=== PATIENT | female | born 1955 | race Caucasian/White ===

== ENCOUNTER 2025-06-14 06:05 | Inpatient (IN) | payer MEDICARE, SELFPAY ==
[2025-06-14] VITALS (58 sets, daily range): BP systolic 103–165; BP diastolic 55–91; PULSE 58–94; RESP 12–26; TEMP 36.5–36.9; O2SAT 92–100; BMI 35.1
--- NOTE | 2025-06-14 | ECHO_ITS ---
Patient Info Name: Sharmila Rubalcava Age: 69 years : 1955 Gender: Female Ht: 64 in Wt: 204 lbs BSA: 2.08 m2 HR: 65 bpm BP: 109 / 61 mmHg Heart Rhythm: Sinus Rhythm Technical Quality: Good Exam Date: 06/14/2025 3:33 PM Patient Status: I Admit Date: 06/14/2025 Exam Type: CA echo doppler color flow Complete two-dimensional, color flow and Doppler transthoracic echocardiogram is performed. Staff Referring Physician: Khloe Cheatham Hepatology Physician: Willie Pisano III Attending Provider: Carol Duffy MD Summary 1. Complete two-dimensional, color flow and Doppler transthoracic echocardiogram is performed. 2. Concentric left ventricular hypertrophy with vigorous systolic function visually estimated ejection fraction 75%. 3. Is 1 diastolic noncompliance. 4. Aortic valve sclerosis with good leaflet separation valve was not stenotic. 5. Mild mitral regurgitation. Left Ventricle Left ventricular chamber dimension is normal. Left ventricular systolic function is hyperdynamic, estimated at >70. There is moderate concentric increased left ventricular wall thickness. The left ventricular diastolic function is grade I diastolic dysfunction. Right Ventricle Right ventricular chamber dimension is normal. Left Atria Left atrial chamber dimension is normal. Right Atria Right atrial chamber dimension is normal. Aortic Valve The aortic valve is trileaflet. There is mild aortic valve sclerosis. Pulmonic Valve The pulmonic valve is normal. Mitral Valve The mitral valve has normal leaflets. There is mild mitral valve regurgitation. Tricuspid Valve The tricuspid valve leaflets are normal. Pericardium/Pleural The pericardium appears normal. Aorta The aortic root size at the sinus of Valsalva is normal. Left Ventricular Outflow Tract Name Value Normal LVOT 2D LVOT Diameter 2.2 cm LVOT Doppler LVOT Peak Velocity 153 cm/s LVOT Peak Gradient 9 mmHg LVOT Mean Gradient 6 mmHg LVOT VTI 39 cm LVOT VTI/AV VTI Ratio 0.9 LVOT Stroke Volume 143 ml LVOT CO 8.7 l/min LVOT CI 4.2 l/min/m2 Pulmonic Valve Name Value Normal PV Doppler PV Peak Velocity 78 cm/s PV Peak Gradient 2 mmHg PV Mean Gradient 1 mmHg Mitral Valve Name Value Normal MV Doppler MV Peak Gradient 3 mmHg MV Mean Gradient 2 mmHg MV Area (Cont Eq VTI) 4.6 cm2 MV Regurgitation Doppler MR Peak Gradient 128 mmHg MV Diastolic Function MV E Peak Velocity 82 cm/s MV A Peak Velocity 99 cm/s MV E/A 0.8 MV Decel Time (PW) 286 ms MV Annular TDI MV E/e' (Septal) 20.3 MV E/e' (Lateral) 16.7 MV E/e' (Average) 18.5 Tricuspid Valve Name Value Normal TV Regurgitation Doppler TR Peak Velocity 244 cm/s TR Peak Gradient 24 mmHg Estimated PAP/RSVP RA Pressure 10 mmHg <=5 PA Systolic Pressure 34 mmHg <36 RV Systolic Pressure 34 mmHg <36 TV Annular TDI TV Lateral Patricia s' Velocity 9.9 cm/s >=9.5 Aortic Valve Name Value Normal AV Doppler AV Peak Velocity 216 cm/s AV Peak Gradient 19 mmHg AV Mean Gradient 8 mmHg AV VTI 41 cm AV Area (Cont Eq VTI) 3.5 cm2 >=3.0 AV Area (Cont Eq Akin) 2.6 cm2 AV DI (Akin) 0.71 AV Regurgitation 2D LVOT Area 3.7 cm2 Ventricles Name Value Normal LV Dimensions 2D/MM IVS Diastolic Thickness (2D) 1.5 cm 0.6-1.0 LVID Diastole (2D) 3.2 cm 3.8-5.2 LVIW Diastolic Thickness (2D) 1.5 cm 0.6-0.9 LVID Systole (2D) 2.3 cm 2.2-3.5 LVOT Diameter 2.2 cm LV Mass (2D Cubed) 169.64 g 67.00-162.00 LV Mass Index (2D Cubed) 81 g/m2 43-95 Relative Wall Thickness (2D) 0.93 <=0.42 LV Fractional Shortening/Ejection Fraction 2D/MM LV Fractional Shortening (2D) 27 % 27-45 LV EF (2D Teichholz) 55 % LV Diastolic Volume (4C MOD) 66 ml LV EF (4C MOD) 73 % LV Diastolic Volume (2C MOD) 51 ml LV EF (2C MOD) 58 % LV Diastolic Volume (BP MOD) 60 ml 46-106 LV Diastolic Volume Index (BP MOD) 29 ml/m2 29-61 LV Systolic Volume (BP MOD) 20 ml 14-42 LV Systolic Volume Index (BP MOD) 9 ml/m2 8-24 LV EF (BP MOD) 67 % 54-74 LV Diastolic Length (4C) 7.8 cm LV Systolic Length (4C) 6.3 cm LV Stroke Volume (4C MOD) 48 ml Atria Name Value Normal LA Dimensions LA Volume (4C A-L) 43 ml LA Volume (BP A-L) 50 ml RA Dimensions RA Systolic Major [place] Length (4C) 4.9 cm 2.2-2.8 RA Area (4C) 15.1 cm2 <=18.0 Report Signatures
--- NOTE | ~2025-06-14 | XR_ITS ---
Examination: XR chest 2V Clinical History: dyspnea Comparison: None Technique: PA and Lateral Findings: Cardiomediastinal silhouette normal size and configuration. Scattered interstitial markings. No acute bony abnormality. IMPRESSION: 1. Interstitial pulmonary edema and/or pneumonitis. Reviewed, dictated and finalized at location R.
--- NOTE | ~2025-06-14 | US_ITS ---
US renal BI CLINICAL INDICATION:renal insufficiency . COMPARISON: None. FINDINGS: The right kidney measures 9.7 x 4.3 x 4.8 cm. The left kidney measures 11 x 5.6 x 4.7 cm. Renal contour and echotexture are unremarkable. No cystic or solid mass is evident .There is no hydronephrosis. The bladder is unremarkable. IMPRESSION: No hydronephrosis is evident. Normal appearing bladder. Reviewed, dictated and finalized at location S.
--- NOTE | 2025-06-14 06:20 | ECG_ITS ---
Test Date: 2025-06-14 06:38:04 Measurements Intervals Centre Rate: 87 P: 36 VT: 195 QRS: 2 QRSD: 93 T: 97 QT: 365 QTc: 440 Interpretive Statements SINUS RHYTHM POSSIBLE LEFT ATRIAL ENLARGEMENT LEFT VENTRICULAR HYPERTROPHY AND ST-T CHANGE BASELINE ARTIFACT- V2 BORDERLINE ECG No previous ECG available for comparison Electronically Signed On 06-14-2025 07:00:04 CDT by Terry Cr D.O.
[2025-06-14 06:39] LABS: Hematocrit 39.6 % (37.0-47.0); Hemoglobin 13.1 g/dL (12.0-15.0); Immature Granulocyte Percent A 0.3 % (0-0.5); Lymphocytes Absolute Auto 1.63 K/mm3 (0.9-3.2); Mean Corpuscular HGB Conc 33.1 g/dl (32-36); Mean Corpuscular Hemoglobin 27.2 pg (26-34); Mean Corpuscular Volume 82.2 fl (80-100); Nucleated Red Blood Cells Absolute Auto 0.000 K/mm3 (0.0-0.012); Nucleated Red Blood Cells Perc 0.0 % (0.0-0.2); Platelet Count Result 210 k/mm3 (150-375); Red Blood Count 4.82 M/mm3 (4.2-5.4); White Blood Count 9.0 K/mm3 (4.5-10.0)
[2025-06-14 06:48] LABS: Alanine Aminotransferase 22 U/L (6-35); Albumin Level 4.1 g/dL (3.5-5.1); Alkaline Phosphatase 94 U/L (38-126); Anion Gap 7 mmol/L (4-12); Aspartate Amino Transferase 36 U/L (14-36); Bilirubin,Total 0.6 mg/dL (0.2-1.3); Blood Urea Nitrogen 18 mg/dL (7-17); Calcium 9.8 mg/dL (8.4-10.2); Carbon Dioxide 25 mmol/L (22-30); Chloride 103 mmol/L (98-107); Estimated CRCL calculation 36 ml/min; Estimated Glomerular Filt Rate 36; Glucose 137 mg/dL (65-110); Lipase 99 U/L (23-300); Potassium 4.4 mmol/L (3.4-5.0); Sodium 135 mmol/L (137-145); Total Protein 6.7 g/dL (6.3-8.2)
[2025-06-14 06:53] LABS: INR 1.0; Prothrombin Time 12.8 Seconds (11.1-14.7)
[2025-06-14 06:54] LABS: Partial Thromboplastin Time 31.5 Seconds (22.3-36.8)
[2025-06-14 06:55] LABS: Strep Group A RT-PCR NOT DETECTED (Negative)
[2025-06-14 07:01] LABS: Troponin I 1.150 ng/mL (0.000-0.034)
[2025-06-14 07:06] LABS: Influenza A QL RT-PCR Negative (Negative); Influenza B QL RT-PCR Negative (Negative); RSV RNA, RT-PCR Negative (Negative); SARS-CoV-2 RNA PCR Negative (Negative)
--- OUTSIDE RECORDS SUMMARY | 2025-06-14 07:30 | XMS_ITS | Clinical Summary ---
Author Organization [facility] Address [address] [place] [address] Care Team Providers Care Chief Ophthalmic Technician Name Role Phone Walter Joe MD Primary Care Provider [phone] Flavia Alonso RN Unavailable [phone] Allergies Active Allergy Reactions Criticality Noted Date Comments Ciprofloxacin Unknown,Rash Medium 10/11/2017 Metronidazole Unknown,Rash Medium 10/11/2017 Nitrofurantoin Itching High 10/11/2017 Pneumococcal 23-Hailee Ps Vaccine Rash Medium 09/05 Medications ramipriL (ALTACE) 5 mg capsule Take 1 capsule (5 mg total) by mouth daily 90 capsule 3 02/14/20 25 026 Active rosuvastatin (CRESTOR) 5 mg tablet 1 tablet Wednesday. 30 tablet 3 02/14/20 25 Active levothyroxine (SYNTHROID) 88 mcg tabletIndications :Acquired hypothyroidism Take 1 tablet (88 mcg total) by mouth anatomic pathologist before breakfast 90 tablet 06/07/20 25 Active levothyroxine (SYNTHROID) 88 mcg tabletIndications :Acquired hypothyroidism TAKE 1 TABLET EVERY DAY 90 tablet 3 03/20/20 24 025 Discontinued Active Problems Problem Noted Date Diagnosed Date Medicare annual wellness visit, subsequent 07/28 Renal cyst 10/27/2021 Pulmonary nodule 10/27/2021 Spondylosis of lumbar spine 02/15/2019 Post menopausal syndrome 09/23/2018 HTN (hypertension) 08/18/2017 Assessment & Plan (02/01/2024 9:08 AM CDT): Labs are up-to-date. Reviewed from August. Blood pressure stable. Continue present management. Hyperlipidemia 08/18/2017 Assessment & Plan (02/01/2024 9:08 AM CDT): LDL 133. She is doing well. Normal diet exercise. Low-fat diet. Otherwise stable. Repeat August of 2024 OA (osteoarthritis) 08/18/2017 Hypothyroidism 03/03/2017 Assessment & Plan (02/01/2024 9:08 AM CDT): Will check a TSH. Weight stable. Otherwise doing well. Resolved Problems Problem Noted Date Diagnosed Date Resolved Date Hernia of anterior abdominal wall 06/13/2021 02/01/2024 Abdominal pain 06/13/2021 08/02/2023 Pulmonary hypertension 01/23/202101/31 Pain of left upper extremity 12/20/2020 02/01/2024 Benign hypertensive heart di sease without heart failure 12/20/2020 02/01/2024 Class 1 obesity with body ma ss index (BMI) of 31.0 to 31.9 in adult 12/20/2020 08/14/2024 Plantar fasciitis, bilateral 02/15/2019 02/01/2024 Immunizations Immunization Administration Dates Next Due Influenza, Unspecified 05/16/2024(Deferr ed: Patient Refused),10/18/2023(Deferred: Patient Refused),08/02/2023(Deferred: Allergy),05/16/2022(Deferred: Patient Refused),05/16/2022(Deferred: Patient Refused),08/23/2019(Deferred: Patient decision) Pneumococcal Conjugate Pcv20 08/02/2023(Deferred : Allergy) Surgical History Surgery Date Site/Laterality Comments DILATION AND CURETTAGE OF UTERUS TYMPANOSTOMY TUBE PLACEMENT Medical History Medical History Date Comments HTN (hypertension) Hypothyroidism Osteoarthritis Family History Medical History Relation Name Comments Colon cancer Father No Known Problems Maternal Grandmother COPD Mother No Known Problems Paternal Grandfather Cancer Paternal Grandmother No Known Problems Sister 1 No Known Problems Sister 2 Relation Name Status Comments Father Maternal Grandfather Maternal Grandmother Mother Paternal Grandfather Paternal Grandmother Sister 1 Alive Sister 2 Alive Son Alive Social History Tobacco Use Types Packs/Day Years Used Date Smoking Tobacco: Never Smokeless Tobacco: Never Tobacco Cessation:Counseling Given: Not Answered Alcohol Use Standard Drinks/Week Comments Never 0 (1 standard drink = 0.6 oz pur e alcohol) AUDIT-C Answer Date Recorded Frequency of Alcohol Consumption Not on file 02/13/2025 Q2: How many drinks containi ng alcohol do you have on a typical day when you are drinking? 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 Gender Identity Not on file Sexual Orientation Not on file Obstetrics History Last Filed Vital Signs Vital Sign Reading Time Taken Comments Blood Pressure 160/100 02/13/2025 8:48 AM CDT Pulse 84 02/13/2025 8:01 AM CDT Temperature 36.7 C (98 F) 02/13/2025 8:01 AM CDT Respiratory Rate 18 02/13/2025 8:01 AM CDT Oxygen Saturation 97% 02/13/2025 8:01 AM CDT Inhaled Oxygen Concentration - - Weight 92.1 kg (203 lb 1.6 oz) 02/13/2025 8:01 A M CDT Height 162.6 cm (5' 4) 02/13/2025 8:01 AM CDT Body Mass Index 34.86 02/13/2025 8:01 AM CDT Plan of Treatment Health Maintenance Due Date Last Done Comments Breast Cancer Screening-Mammogram 1955 DTaP/Tdap/Td Vaccine (1 - Tdap) 1964 Hepatitis B Screening 1971 Pneumococcal vaccine 65+ (1 of 1 - PCV) 2003 Zoster Vaccine (1 of 2) 2003 Osteoporosis Screening-Bone Density Scan 03/22/2025 03/22/2023, 10/04/2018, 08/18/2012 Influenza Vaccine (#1) 2025 Fall Risk Assessment 08/14/2025 08/14/2024, 08/02/2023, 07/28/2022, Additional history exists Well Visit 65+ 08/14/2025 08/14/2024, 07/16, 07/28/2022, Additional history exists Colon Cancer Screening-DNA Stool 02/10/2026 02/11/20 23, 09/07/2019 Depression Screening 02/13/2026 02/13/2025, 08/14/2024, 02/01/2024, Additional history exists Colon Cancer Screening-FIT Discontinued 02/10/2023, Hepatitis C Screening Completed 02/23/2023 Procedures Procedure Name Priority Date/Time Associated Diagnosis Comments DEXA AXIAL SKELETON BONE DENSITY 1 OR MORE SITES Schedule Routine, Read Routine (OP Routine) 03/22/2023 2:03 PM CDT Osteoporosis screening Post-menopausal HEPATITIS C ANTIBODY Routine 02/23/2023 7:18 AM CDT STOOL DNA COLOGUARD Routine 02/10/2023 8:15 AM CDT Colon cancer screening from Last 3 Months or Most Recently Relevant to Health Maintenance Results * Dexa Axial Skeleton Bone Density 1 or 2 Site (03/22/2023 2:03 PM CDT) Anatomical Region Laterality Modality Body N/A Mammography 03/22/2023 4:02 PM CDT Narrative 03/22/2023 4:03 PM CDT EXAM DESCRIPTION: DEXA AXIAL SKELETON BONE DENSITY 1 OR MORE SITES REASON FOR STUDY: 67 y/o year old F with given history of: Postmenopausal status. Patient has taken or is taking hormone replacement therapy, vitamin-D and calcium. Rubber Tubing Backer/Model: Saavn A (S/N [id number]) CLINICAL INFORMATION: Current height: 64 inches Maximum height: 64 inches Weight: 197 pounds Risk factors: None COMPARISON: 10/04/2018 FINDINGS: AP LUMBAR SPINE L1-L4: Total BMD is 0.883 g/cm2 T-score is -1.5 This is a 0.5% decrease in comparison to prior exam which is not statistically significant. LEFT HIP: Total BMD is 1.091 g/cm2 T-score is 1.2 This is a 3.8% increase in comparison to prior exam which is statistically significant. Femoral neck BMD is 1.086 g/cm2 T-score is 2.1 FRAX: 10 year risk for a major osteoporotic fracture is 4.6 %, 10 year risk for a hip fracture is 0.1 % IMPRESSION: Low bone mass REFERENCE: Bone mineral density: Normal (T-score above or = -1.0) Low bone mass (T-score between -1.0 and -2.5) replaces the previously used term osteopenia Osteoporosis (T-score = or below -2.5) Medical evaluation for secondary causes of low bone mineral density may be appropriate. FRAX is a World Health Organization validated fracture risk assessment tool that calculates a person's 10 year probability of a major osteoporosis related fracture and hip fracture. According to the National Osteoporosis Foundation guidelines, postmenopausal women and men age 50 or older with low bone mass and a 10 year probability of a major osteoporosis related fracture = or greater than 20% or a 10 year probability of a hip fracture = or greater than 3% should be considered for treatment. For further information, including treatment recommendations, please refer to the 2019 ISCD Official Positions (http://www.iscd.org) and the NOF's Clinician's Guide to Prevention and Treatment of Osteoporosis (http://www.nof.org/professionals/clinical-guidelines) THIS IS AN ELECTRONICALLY VERIFIED FINAL REPORT 03/22/2023 4:03 PM - Electronically signed by Magdalene Levin M.D. TW: TW Report ID: [id number] Reading Location: [id number] Procedure Note Magdalene Levin MD - 03/22/2023 EXAM DESCRIPTION: DEXA AXIAL SKELETON BONE DENSITY 1 OR MORE SITES REASON FOR STUDY: 67 y/o year old F with given history of:Postmenopausal status. Patient has taken or is taking hormone replacement therapy,vitamin-D and calcium. Rubber Tubing Backer/Model: Hologic Horizon A (S/N [id number]) CLINICAL INFORMATION: Current height: 64 inches Maximum height: 64 inches Weight: 197 pounds Risk factors: None COMPARISON: 10/04/2018 FINDINGS: AP LUMBAR SPINE L1-L4: Total BMD is 0.883 g/cm2 T-score is -1.5 This is a 0.5% decrease in comparison to prior exam which is notstatistically significant. LEFT HIP: Total BMD is 1.091 g/cm2 T-score is 1.2 This is a 3.8% increase in comparison to prior exam which is statistically significant. Femoral neck BMD is 1.086 g/cm2 T-score is 2.1 FRAX: 10 year risk for a major osteoporotic fracture is 4.6 %, 10 year risk fora hip fracture is 0.1 % IMPRESSION: Low bone mass REFERENCE: Bone mineral density: Normal (T-score above or = -1.0) Low bone mass (T-score between -1.0 and -2.5) replaces thepreviously used term osteopenia Osteoporosis (T-score = or below -2.5) Medical evaluation for secondary causes of low bone mineral density may be appropriate. FRAX is a World Health Organization validated fracture risk assessmenttool that calculates a person's 10 year probability of a major osteoporosisrelated fracture and hip fracture. According to the National OsteoporosisFoundation guidelines, postmenopausal women and men age 50 or older with low bonemass and a 10 year probability of a major osteoporosis related fracture = or greater than 20% or a 10 year probability of a hip fracture = or greaterthan 3% should be considered for treatment. For further information, including treatment recommendations, please referto the 2019 ISCD Official Positions (http://www.iscd.org) and the NOF's Clinician's Guide to Prevention and Treatment of Osteoporosis (http://www.nof.org/professionals/clinical-guidelines) THIS IS AN ELECTRONICALLY VERIFIED FINAL REPORT 03/22/2023 4:03 PM - Electronically signed by Magdalene Levin M.D. TW: LARISSA Report ID: [id number] Reading Location: [id number] us Walter Joe MD IMG DXA PROCEDURES Final Resu lt * Hepatitis C antibody (02/23/2023 7:18 AM CDT) Pathologist [facility] Hep C Ab NON-REACTI VE NON-REACT EVE [facility] Comment: HCV antibody was non-reactive. There is no laboratory evidence of HCV infection. In most cases, no further action is required. However, if recent HCV exposure is suspected, a test for HCV RNA (test code 25080) is suggested. For additional information please refer to http://education.GeoEye/faq/NBQ32d4 (This link is being provided for informational/ educational purposes only.) 02/23/2023 7:18 AM CDT 02/23/2023 7:[address] [facility] - 02/24/2023 3:59 AM CDT FASTING:YES FASTING: YES Walter Joe MD LAB MICROBIOLOGY - GENERAL OR DERABLES Final Result [email or web address] [address] [place] [address] * Stool DNA - Cologuard (02/10/2023 8:15 AM CDT) Pathologist [facility] Stool DNA - Cologuard Negative Negative [facility] (CLIA #:[id number]) Comment: NEGATIVE TEST RESULT. A negative Cologuard result indicates a low likelihood that a colorectal cancer (CRC) or advanced adenoma (adenomatous polyps with more advanced pre-malignant features) is present. The chance that a person with a negative Cologuard test has a colorectal cancer is less than 1 in 1500 (negative predictive value >99.9%) or has an advanced adenoma is less than 5.3% (negative predictive value 94.7%). These data are based on a prospective cross-sectional study of 10,000 individuals at average risk for colorectal cancer who were screened with both Cologuard and colonoscopy. (Alondra Franz al, N Engl J Med 2014;370(14):3964-3974) The normal value (reference range) for this assay is negative. COLOGUARD RE-SCREENING RECOMMENDATION: Periodic colorectal cancer screening is an important part of preventive healthcare for asymptomatic individuals at average risk for colorectal cancer. Following a negative Cologuard result, the [place] Cancer Society and U.S. Multi-Society Task Force screening guidelines recommend a Cologuard re-screening interval of 3 years. References: [place] Cancer Society Guideline for Colorectal Cancer Screening: https://www.cancer.org/cancer/awpyc-cqlqvf-cujxjg/qwxhpnbkb-ulzztgeri-iixtzxn/ac s-rec ommendations.html.; Reji DK, Momo CR, Tono ClaudioK, Colorectal Cancer Screening: Recommendations for Physicians and Patients from the U.S. Multi-Society Task Force on Colorectal Cancer Screening , Am J Gastroenterology 2017; 112:5157-9969. TEST DESCRIPTION: Composite algorithmic analysis of stool DNA-biomarkers with hemoglobin immunoassay. Quantitative values of individual biomarkers are not reportable and are not associated with individual biomarker result reference ranges. Cologuard is intended for colorectal cancer screening of adults of either sex, 45 years or older, who are at average-risk for colorectal cancer (CRC). Cologuard has been approved for use by the U.S. FDA. The performance of Cologuard was established in a cross sectional study of average-risk adults aged 50-84. Cologuard performance in patients ages 45 to 49 years was estimated by sub-group analysis of near-age groups. Colonoscopies performed for a positive result may find as the most clinically significant lesion: colorectal cancer [4.0%], advanced adenoma (including sessile serrated polyps greater than or equal to 1cm diameter) [20%] or non- advanced adenoma [31%]; or no colorectal neoplasia [45%]. These estimates are derived from a prospective cross-sectional screening study of 10,000 individuals at average risk for colorectal cancer who were screened with both Cologuard and colonoscopy. (Alondra Franz al, N Engl J Med 2014;370(14):6224-0252.) Cologuard may produce a false negative or false positive result (no colorectal cancer or precancerous polyp present at colonoscopy follow up). A negative Cologuard test result does not guarantee the absence of CRC or advanced adenoma (pre-cancer). The current Cologuard screening interval is every 3 years. ([place] Cancer Society and U.S. Multi-Society Task Force). Cologuard performance data in a 10,000 patient pivotal study using colonoscopy as the reference method can be accessed at the following location: www.Pond5.com/results. Additional description of the Cologuard test process, warnings and precautions can be found at www.colForemostrd.com. Stool 02/10/2023 8:15 AM CDT 06/10/2023 6:34 PM CDT us Walter Joe MD LAB BODY FLUIDS AND STOOLS OR DERABLES Final Result [facility] (CLIA #:[id number]) [address] [place] [address] from Last 3 Months or Most Recently Relevant to Health Maintenance Insurance [employer] MED[employer]ARE HMO Care Teams Chief Ophthalmic Technician Relationship Specialty Start Date End Date Walter Joe MD PCP - General 10/04/18 Flavia Alonso, RN [address] [facility] [address] [address] Shingle Catcher 01/25/19
--- OUTSIDE RECORDS SUMMARY | 2025-06-14 07:31 | XMS_ITS | Encounter Summary ---
Author Organization [facility] Care Team Providers Care Bolt Sawyer Name Role Phone Walter Joe MD Primary Care Provider [phone] Flavia Alonso RN Unavailable [phone] Encounter Details Date Type Department Care Team (Latest Contact Info) Description 07/30/2017 Orders Only [facility] CLINCONV ProviderDa MD [address] [place] [address] Social History Tobacco Use Types Packs/Day Years Used Date Smoking Tobacco: Never Assessed Comments Unknown Sex and Gender Information Value Date Recorded Sex Assigned at Not on file Legal Sex Female 2:52 PM 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 us Historical Provider Final Res ult documented in this encounter Visit Diagnoses Not on filedocumented in this encounter Care Teams Bolt Sawyer Relationship Specialty Start Date End Date Walter Joe MD PCP - General 10/04/18 Flavia Alonso, RN [address] [facility] [address] [place] [address] [place] [address] It Support Technician 01/25/19 documented as of this encounter
--- OUTSIDE RECORDS SUMMARY | 2025-06-14 07:31 | XMS_ITS | Clinical Summary ---
Author Organization [facility] Address [address] [place] [address] Care Team Providers Care Accountant Property Name Role Phone Unavailable Primary Care Provider Unavailabl e Social History Tobacco Use Types Packs/Day Years Used Date Smoking Tobacco: Never Assessed Comments Unknown Sex and Gender Information Value Date Recorded Sex Assigned at Not on file Legal Sex Female 4:53 PM CDT Gender Identity Not on file Sexual Orientation Not on file Plan of Treatment Health Maintenance Due Date Last Done Comments Colorectal Cancer Screening Colonoscopy (10 Years) 1955 Hepatitis C 1971 DTaP, Tdap and Td Vaccines ( 1 - Tdap) 1972 Mammogram Screening 1993 Pneumococcal Vaccine: 50+ Ye ars (1 of 1 - PCV) 2003 Zoster Vaccines (1 of 2) 2003 Annual Medicare Wellness Visit 2018 Dexa Scan (General) 2018 COVID-19 Vaccine (2024-2 6 season) 2025 Influenza Adult (#1) 2025 RSV Immunization or 60+ Years (1 - 1-dose 75+ series) 2028 Hepatitis A Vaccines Aged Out No long er eligible based on patient's age to complete this topic Meningococcal B Vaccine Aged Out No l onger eligible based on patient's age to complete this topic Meningococcal Vaccine Aged Out No wilner juan francisco eligible based on patient's age to complete this topic RSV Immunizations Under 20 Months Aged Out No longer eligible based on patient's age to complete this topic Insurance [employer]ICARE
[2025-06-14] MEDS: ASPIRIN 81 MG CHEWABLE TABLET 324 MG PO (08:00)
--- NOTE | 2025-06-14 08:16 | ED.SOB ---
HPI - SOB/Dyspnea General Chief Complaint: Shortness of Breath/Dyspnea Stated Complaint: sore throat, palpitations Time Seen by Provider: 06/14/25 07:06 Source: patient Mode of arrival: ambulatory Limitations: no limitations History of Present Illness HPI Narrative: 69-year-old with a history of hypertension, hypercholesteremia presents to the ER with the complaints of shortness of breath since last night. Patient states that she took her blood pressure and cholesterol medicine for minutes later started having short of breath. Denies any chest pain however has mild left upper or abdominal discomfort. No previous history of CAD. Patient states that she had a stress test several years ago which was unremarkable. MD elicited complaint: shortness of breath Onset (ago): day(s) (1) Severity: moderate Exacerbating factors: nothing Associated symptoms: denies other symptoms Related Data Allergies Allergy/AdvReac Type Severity Reaction Status Date / Time ciprofloxacin Allergy Unknown Rash Verified 06/14/25 06:08 metronidazole Allergy Unknown Rash Verified 06/14/25 06:08 nitrofurantoin Allergy Unknown Rash Verified 06/14/25 06:08 Review of Systems Review of Systems: All systems reviewed & are unremarkable except as noted in HPI and below Constitutional: Constitutional: Reports no additional constitutional complaints Eyes: Eyes: Reports no additional eye complaints Cardiovascular: Cardiovascular: Reports no additional cardiovascular complaints Respiratory: Respiratory: Reports as per HPI Gastrointestinal: Gastrointestinal: Reports no additional gastrointestinal complaints Musculoskeletal: Musculoskeletal: Reports no additional musculoskeletal complaints Neurologic: Reports system reviewed and no additional complaints, except as documented Exam Narrative: GENERAL: Well-appearing, well-nourished, and in no acute distress. HEAD: Normocephalic, atraumatic. EYES: PERRLA and EOMI. ENT: Nares clear, no rhinorrhea or epistaxis. Mucous membranes moist. NECK: Supple. CHEST: Clear to auscultation. No respiratory distress. HEART: Regular rate and rhythm. No murmur heard. Normal peripheral pulses. ABDOMEN: Soft, nontender, nondistended, normal active bowel sounds. EXTREMITIES: Normal range of motion. No edema. SKIN: Warm, dry, no rash. NEURO: No focal deficits. Alert and oriented x3. PSYCH: Normal mood and affect. Course Course Emergency Course: Patient still remains pain-free at this time. Informed her and family about her lab work, EKG findings. Her troponin was elevated consistent with NSTEMI discussed with Dr. Mundo krause consult. Notified Dr Sarah Beth Varner Vital Signs Vital signs: Vital Signs Pulse Rate 94 06/14/25 06:17 Respiratory Rate 18 06/14/25 06:17 Pulse Oximetry 99 06/14/25 06:17 Temperature 36.6 C 06/14/25 06:18 Pulse Rate 92 06/14/25 06:47 Respiratory Rate 12 06/14/25 06:47 Blood Pressure 109/72 06/14/25 06:34 Pulse Oximetry 96 06/14/25 06:47 Oxygen Delivery Room Air 06/14/25 06:21 MDM - SOB/Dyspnea Differential Diagnosis Differential diagnosis: Likely congestive heart failure and community acquired pneumonia Medical Records Attestation: I reviewed the patient's medical records. Lab Data Attestation: I reviewed the patient's lab results. 06/14/25 06:32 06/14/25 06:32 Labs: Lab Results 06/14/25 06/14/25 Range/Units 06:25 06:32 WBC 9.0 (4.5-10.0) K/mm3 RBC 4.82 (4.2-5.4) M/mm3 Hgb 13.1 (12.0-15.0) g/dL Hct 39.6 (37.0-47.0) % MCV 82.2 (80-100) fl MCH 27.2 (26-34) pg MCHC 33.1 (32-36) g/dl RDW 14.1 (11.5-14.5) % Plt Count 210 (150-375) k/mm3 MPV 9.9 (7.4-10.4) fl Immature Gran % (Auto) 0.3 (0-0.5) % Neut % (Auto) 74.9 H (45.5-73.1) % Lymph % (Auto) 18.1 L (18.3-44.2) % Whiteside % (Auto) 5.3 (2.6-8.5) % Eos % (Auto) 0.8 (0-4.4) % Baso % (Auto) 0.6 (0.2-1.2) % Lymph # (Auto) 1.63 (0.9-3.2) K/mm3 Whiteside # (Auto) 0.5 (0.1-0.6) K/mm3 Eos # (Auto) 0.1 (0-0.3) K/mm3 Baso # (Auto) 0.1 (0.0-0.1) K/mm3 Abs Immat Gran (auto) 0.03 (0.00-0.031) K/mm3 Absolute Neuts (auto) 6.7 (1.3-6.7) K/mm3 Absolute Nucleated RBC 0.000 (0.0-0.012) K/mm3 Nucleated RBC % 0.0 (0.0-0.2) % PT 12.8 (11.1-14.7) Seconds INR 1.0 APTT 31.5 (22.3-36.8) Seconds Sodium 135 L (137-145) mmol/L Potassium 4.4 (3.4-5.0) mmol/L Chloride 103 (98-107) mmol/L Carbon Dioxide 25 (22-30) mmol/L Anion Gap 7 (4-12) mmol/L BUN 18 H (7-17) mg/dL Creatinine 1.42 H (0.7-1.0) mg/dL Estim Creat Clear Calc 36 ml/min Estimated GFR 36 L (59 - ) Glucose 137 H (65-110) mg/dL Calcium 9.8 (8.4-10.2) mg/dL Total Bilirubin 0.6 (0.2-1.3) mg/dL AST 36 (14-36) U/L ALT 22 (6-35) U/L Alkaline Phosphatase 94 (38-126) U/L Troponin I 1.150 H* (0.000-0.034) ng/mL Total Protein 6.7 (6.3-8.2) g/dL Albumin 4.1 (3.5-5.1) g/dL Lipase 99 (23-300) U/L Influenza A (RT-PCR) Negative (Negative) Influenza B (RT-PCR) Negative (Negative) RSV (RT-PCR) Negative (Negative) SARS-CoV-2 RNA (RT-PCR) Negative (Negative) Group A Strep (PCR) Not detected (Negative) Imaging Data Radiologist's impression: ITS Impressions Chest X-Ray 06/14/25 06:58 IMPRESSION: 1. Interstitial pulmonary edema and/or pneumonitis. ECG Data EKG #1: ECG completion date: 06/14/25 ECG completion time: 06:38 EKG Interpretation: normal rate (87), sinus rhythm, no ectopy, no ST changes, normal QRS and NL axis Discharge Plan Discharge Clinical Impression: Non-ST elevation IN (NSTEMI) Patient Disposition: Still a Patient Condition: Stable Patient Language: Occitan Follow-up/Referrals: Tatyana,Walter Castro MD [Primary Care Provider, Unknown] Time of Disposition: 08:22
--- NOTE | 2025-06-14 08:47 | P.CONCA_ITS ---
Assessment and Plan Assessment and plan (1) Non-ST elevation ND (NSTEMI): Code(s): I21.4 - Non-ST elevation (NSTEMI) myocardial infarction Status: Acute Assessment and Plan: * patient presents with SOB, chest pain and nausea * has had anginal symptoms at home * her initial troponin is 1.150, will trend * her EKG demonstrates ST depressions * will need LHC to r/o CAD * echo has been ordered this am to look for any LV dysfunction or wall motion abnormality * heparin drip ordered. * begin aspirin 81 mg daily and atrorvastatin (2) Hypertension: Code(s): I10 - Essential (primary) hypertension Status: Acute Assessment and Plan: * blood pressure well controlled at this time currently 117/82 * reports on Metoprolol at home would resume * will continue to monitor BP for goal <130/80 (3) Hyperlipidemia: Code(s): E78.5 - Hyperlipidemia, unspecified Status: Acute Assessment and Plan: * on atorvastatin at home would resume * will update lipid panel (4) Renal insufficiency: Code(s): N28.9 - Disorder of kidney and ureter, unspecified Status: Acute Assessment and Plan: * her cr is 1.42 on admission * unclear of patient baseline * will monitor closely with IV contrast post LHC Plan * Begin heparin drip * get echo this am * will discuss timing of LHC with Dr. Flower History of Present Illness History of Present Illness Consult date/time: 06/14/25 08:47 Requesting physician: Lucio Sandy MD Consult reason: chest pain Reason For Visit: NSTEMI Narrative: Sharmila Rubalcava is a 69 y.o. female with a PMH of HTN and HLD who presented to the ER with c/o shortness of breath and nausea. According to the patient she took her evening medications and then shortly after began feeling nauseated. She then developed shortness of breath and felt as though she could not catch her breath. She tried to sleep, but could not sleep as she felt uncomfortable with a dull pain under her left breast. Around 2 am she finally called her son and asked him to bring her to the ER. She continues to have pain under the left breast. Her shortness of breath has improved. She reports for a couple months now she has noted pain in her chest and teeth when she would be outside working in the yard. She would go and rest and pain would resolve. Denies any previous cardiac history. We were consulted as noted to have elevated troponin and concern for NSTEMI. Review of Systems 2 Review of Systems: All systems reviewed & are unremarkable except as noted in HPI and below Meds Home Medications and Allergies Allergies Allergy/AdvReac Type Severity Reaction Status Date / Time ciprofloxacin Allergy Unknown Rash Verified 06/14/25 06:08 metronidazole Allergy Unknown Rash Verified 06/14/25 06:08 nitrofurantoin Allergy Unknown Rash Verified 06/14/25 06:08 Vital Signs Vital Signs - 24 hr 06/14/25 06:17 06/14/25 06:18 06/14/25 06:18 Temperature 36.6 C Pulse Rate 94 88 89 Respiratory Rate 18 16 16 Blood Pressure 130/66 130/66 Pulse Oximetry 99 98 100 Oxygen Delivery 06/14/25 06:21 06/14/25 06:30 06/14/25 06:34 Temperature Pulse Rate 90 86 Respiratory Rate 26 H 13 Blood Pressure 109/72 Pulse Oximetry 96 Oxygen Delivery Room Air 06/14/25 06:47 Temperature Pulse Rate 92 Respiratory Rate 12 Blood Pressure Pulse Oximetry 96 Oxygen Delivery Exam 2 Const: General: comfortable and no acute distress Eyes: General: appearance normal, both eyes and all related structures Neck: Neck: supple and No no JVD Carotids: no bruits Resp: Effort & Inspection: normal respiratory effort Auscultation: clear to auscultation bilaterally Cardio: Rate: regular rate Rhythm: regular rhythm Heart sounds: no gallops, no murmurs and no rubs Skin: General skin exam: normal color Neuro: Speech: normal speech Extrem: General: normal to inspection Psych: Mental Status: mental status grossly normal Affect: normal affect Results Labs and Meds 06/14/25 06:32 06/14/25 06:32 Lab results: Cardiac Enzymes 06/14/25 Range/Units 06:32 AST 36 (14-36) U/L Troponin I 1.150 H* (0.000-0.034) ng/mL Coagulation 06/14/25 Range/Units 06:32 PT 12.8 (11.1-14.7) Seconds APTT 31.5 (22.3-36.8) Seconds CBC 06/14/25 Range/Units 06:32 WBC 9.0 (4.5-10.0) K/mm3 RBC 4.82 (4.2-5.4) M/mm3 Hgb 13.1 (12.0-15.0) g/dL Hct 39.6 (37.0-47.0) % Plt Count 210 (150-375) k/mm3 Lymph # (Auto) 1.63 (0.9-3.2) K/mm3 Larue # (Auto) 0.5 (0.1-0.6) K/mm3 Eos # (Auto) 0.1 (0-0.3) K/mm3 Baso # (Auto) 0.1 (0.0-0.1) K/mm3 Comprehensive Metabolic Panel 06/14/25 Range/Units 06:32 Sodium 135 L (137-145) mmol/L Potassium 4.4 (3.4-5.0) mmol/L Chloride 103 (98-107) mmol/L Carbon Dioxide 25 (22-30) mmol/L BUN 18 H (7-17) mg/dL Creatinine 1.42 H (0.7-1.0) mg/dL Glucose 137 H (65-110) mg/dL Calcium 9.8 (8.4-10.2) mg/dL AST 36 (14-36) U/L ALT 22 (6-35) U/L Alkaline Phosphatase 94 (38-126) U/L Total Protein 6.7 (6.3-8.2) g/dL Albumin 4.1 (3.5-5.1) g/dL Patient Weight 06/14/25 23:59 Weight 91.4 kg Imaging and Cardiology EKG results: image reviewed EKG Interpretation EKG: sinus rhythm EKG shows: sinus rhythm (with ST depression noted. No acute ST elevation )
[2025-06-14 09:11] LABS: Cholesterol 179 mg/dL (0-200); HDL Direct 54 mg/dL; Triglycerides 163 mg/dL (<150)
--- NOTE | 2025-06-14 09:19 | ADMGEN ---
This patient, Sharmila Rubalcava, was admitted to IMU Room 205-02. Patient/family oriented to hospital policies and general routines including ID bracelet, bed and alarms, visiting hours, pain management, procedures, bathroom and other care routines, personal items, smoking policy, room service/diet, and visiting hours. Information on how to activate the Rapid Response Team has been discussed. Patient/Family are encouraged to report perceived risks to care and to ask questions if they do not understand what they are told or what they should do.
[2025-06-14] MEDS: HEPARIN SOD/D5W 100 UNITS/ML 25,000 UNITS/250 ML BAG 8 UNITS IV CONT (09:53)
[2025-06-14] MEDS: METOPROLOL TARTRATE 25 MG TABLET PO ×2 (09:59→20:19)
[2025-06-14 10:03] LABS: Troponin I 2.450 ng/mL (0.000-0.034)
[2025-06-14] MEDS: NITROGLYCERIN OINTMENT 1 INCH DOSE 0.5 INCH TRANSDERM (10:06)
--- NOTE | 2025-06-14 12:05 | WPDHPUPDATE1 ---
History and Physical Update Update Date/Time: 06/14/25 12:05 History and Physical has been reviewed, including an updated exam of the patient. There are NO changes in the patient's condition. Risks, benefits, and alternatives have been discussed and questions answered. Patient agrees to proceed with procedure.
--- NOTE | 2025-06-14 12:05 | WPDMODSED ---
Moderate Sedation Note-Pt Data Patient Data Allergies Allergy/AdvReac Type Severity Reaction Status Date / Time ciprofloxacin Allergy Unknown Rash Verified 06/14/25 09:26 metronidazole Allergy Unknown Rash Verified 06/14/25 09:26 nitrofurantoin Allergy Unknown Rash Verified 06/14/25 09:26 Home Medications ?Medication ?Instructions ?Recorded ?Confirmed ?Type levothyroxine 88 mcg tablet 88 mcg PO DAILY 06/14/25 06/14/25 History ramipril 5 mg capsule 5 mg PO QPM 06/14/25 06/14/25 History rosuvastatin 5 mg tablet 5 mg PO EVERY OTHER DAY 06/14/25 06/14/25 History Current Medications: Active Medications Aspirin (Aspirin 81 Mg Enteric Tablet) 81 mg PO QAM [facility] Heparin Sodium (Porcine) (Heparin Sodium 5,000 Units/Ml Vial) 4,000 units IV PUSH PRN PRN PRN Reason: aPTT less than 55 seconds Heparin Sodium (Porcine) (Heparin Sodium 5,000 Units/Ml Vial) 3,000 units IV PUSH PRN PRN PRN Reason: aPTT 55 - 70 seconds Heparin Sodium/Dextrose (Heparin Sodium/D5w 100 Units/Ml) 25,000 units in 250 mls @ 8 mls/hr IV CONT .Q24H [facility]; Protocol Last Admin: 06/14/25 09:53 Dose: 800 units/hr, 8 mls/hr Metoprolol Tartrate (Metoprolol Tartrate 25 Mg Tablet) 25 mg PO Q12HR [facility] Last Admin: 06/14/25 09:59 Dose: 25 mg Morphine Sulfate (Morphine Sulfate (*Crx) 4 Mg/Ml Inj) 2 mg IV PUSH Q2H PRN PRN Reason: Pain Rated 7-10 Nitroglycerin (Nitroglycerin Sl 0.4 Mg Tablet) 0.4 mg SUBLINGUAL Q5MIN PRN PRN Reason: Chest Pain Ondansetron HCl (Ondansetron Inj 4 Mg/2 Ml Vial) 4 mg IV PUSH Q4H PRN PRN Reason: Nausea Perflutren Lipid Microsphere (Perflutren Lipid Microspheres 1.5 Ml Vial Diluted To 10 Ml Total Volume) 0 ml IV PUSH ONCE PRN; Protocol PRN Reason: adequate visualization Stop: 06/17/25 08:29 Rosuvastatin Calcium (Rosuvastatin 20 Mg Tablet) 40 mg PO QHS [facility] Sedation/Anesthesia: No previous sedation/anesthesia problems (including family history). [facility] [place] Social History Social History Smoking status: Never smoker Second hand tobacco smoke exposure: Yes Alcohol intake: never Substance use: never Substance use type: does not use Lack of Transportation: No Lack of Food: Never True Current Housing: I Have Housing Concerned About Future Housing: No Difficulty Paying Gas/Electric Bills: No Difficulty Paying for Meds: No Currently Unemployed: No Education: High School Diploma/GED Difficulty w/ Childcare or Family Care: No Spiritual care concerns: No Mod Sed Physical Exam Physical Exam Pre Procedural Exam: Normal: Lungs, Heart Size, Heart Rate and Heart Rhythm Hours since solid foods: 12 Hours since liquid intake: 12 Mallampati Classification: class II Internal Medicine - PN: Obj Da Vital Signs Vital Signs: Vital Signs - 24 hr 06/14/25 06:17 06/14/25 06:18 06/14/25 06:18 Temperature 36.6 C Pulse Rate 94 88 89 Respiratory Rate 18 16 16 Blood Pressure 130/66 130/66 Pulse Oximetry 99 98 100 Oxygen Delivery 06/14/25 06:21 06/14/25 06:30 06/14/25 06:34 Temperature Pulse Rate 90 86 Respiratory Rate 26 H 13 Blood Pressure 109/72 Pulse Oximetry 96 Oxygen Delivery Room Air 06/14/25 06:47 06/14/25 06:53 06/14/25 07:00 Temperature Pulse Rate 92 87 80 Respiratory Rate 12 15 14 Blood Pressure 119/80 Pulse Oximetry 96 96 95 Oxygen Delivery 06/14/25 07:01 06/14/25 07:15 06/14/25 07:16 Temperature Pulse Rate 82 83 81 Respiratory Rate 14 17 13 Blood Pressure 120/68 115/74 Pulse Oximetry 95 96 95 Oxygen Delivery 06/14/25 07:30 06/14/25 07:31 06/14/25 07:45 Temperature Pulse Rate 82 83 80 Respiratory Rate 21 H 21 H 13 Blood Pressure 116/83 Pulse Oximetry 92 95 98 Oxygen Delivery 06/14/25 07:46 06/14/25 07:58 06/14/25 08:00 Temperature Pulse Rate 76 88 82 Respiratory Rate 13 19 17 Blood Pressure 123/85 123/85 Pulse Oximetry 98 97 Oxygen Delivery 06/14/25 08:01 06/14/25 08:15 06/14/25 08:16 Temperature Pulse Rate 93 78 83 Respiratory Rate 25 H 16 13 Blood Pressure 129/81 115/69 Pulse Oximetry 98 94 99 Oxygen Delivery 06/14/25 08:30 06/14/25 08:31 06/14/25 08:45 Temperature Pulse Rate 76 75 79 Respiratory Rate 12 16 19 Blood Pressure 117/82 Pulse Oximetry 98 99 95 Oxygen Delivery 06/14/25 08:46 06/14/25 09:00 06/14/25 09:01 Temperature Pulse Rate 79 77 89 Respiratory Rate 19 17 16 Blood Pressure 131/89 110/75 Pulse Oximetry 94 94 95 Oxygen Delivery 06/14/25 09:13 06/14/25 09:59 06/14/25 10:00 Temperature 36.6 C Pulse Rate 78 73 77 Respiratory Rate 18 Blood Pressure 132/91 H Pulse Oximetry 98 Oxygen Delivery 06/14/25 11:42 Temperature 36.5 C Pulse Rate 65 Respiratory Rate 18 Blood Pressure 138/64 Pulse Oximetry 98 Oxygen Delivery Meds/Results Medications: Active Medications Generic Name Dose Route Start Last Admin Trade Name Freq PRN Reason Stop Dose Admin Aspirin 81 mg 06/15/25 09:00 Aspirin 81 Mg Enteric Tablet PO QAM [facility]ALIA Heparin Sodium (Porcine) 4,000 units 06/14/25 09:00 Heparin Sodium 5,000 Units/Ml Vial IV PUSH PRN PRN aPTT less than 55 seconds Heparin Sodium (Porcine) 3,000 units 06/14/25 09:00 Heparin Sodium 5,000 Units/Ml Vial IV PUSH PRN PRN aPTT 55 - 70 seconds Heparin Sodium/Dextrose 25,000 units in 250 mls @ 8 mls/hr 06/14/25 09:00 06/14/25 09:53 Heparin Sodium/D5w 100 Units/Ml IV CONT 800 units/hr .Q24H [facility]ALIA 8 mls/hr Protocol Administration 800 UNITS/HR Metoprolol Tartrate 25 mg 06/14/25 09:10 06/14/25 09:59 Metoprolol Tartrate 25 Mg Tablet PO 25 mg Q12HR [facility]ALIA Administration Morphine Sulfate 2 mg 06/14/25 07:51 Morphine Sulfate (*Crx) 4 Mg/Ml Inj IV PUSH Q2H PRN Pain Rated 7-10 Nitroglycerin 0.4 mg 06/14/25 07:51 Nitroglycerin Sl 0.4 Mg Tablet SUBLINGUAL Q5MIN PRN Chest Pain Ondansetron HCl 4 mg 06/14/25 07:51 Ondansetron Inj 4 Mg/2 Ml Vial IV PUSH Q4H PRN Nausea Perflutren Lipid Microsphere 0 ml 06/14/25 08:28 Perflutren Lipid Microspheres 1.5 Ml Vial Diluted To 10 Ml Total Volume IV PUSH 06/17/25 08:29 ONCE PRN adequate visualization Protocol Rosuvastatin Calcium 40 mg 06/14/25 21:00 Rosuvastatin 20 Mg Tablet PO QHS [facility] Radiology Results: ITS Impressions Chest X-Ray 06/14/25 06:58 IMPRESSION: 1. Interstitial pulmonary edema and/or pneumonitis. Labs 06/14/25 06:32 06/14/25 06:32 Labs: Laboratory Results - last 24 hr 06/14/25 06/14/25 06/14/25 06:25 06:32 09:22 WBC 9.0 RBC 4.82 Hgb 13.1 Hct 39.6 MCV 82.2 MCH 27.2 MCHC 33.1 RDW 14.1 Plt Count 210 MPV 9.9 Immature Gran % (Auto) 0.3 Neut % (Auto) 74.9 H Lymph % (Auto) 18.1 L Hale % (Auto) 5.3 Eos % (Auto) 0.8 Baso % (Auto) 0.6 Lymph # (Auto) 1.63 Hale # (Auto) 0.5 Eos # (Auto) 0.1 Baso # (Auto) 0.1 Abs Immat Gran (auto) 0.03 Absolute Neuts (auto) 6.7 Absolute Nucleated RBC 0.000 Nucleated RBC % 0.0 PT 12.8 INR 1.0 APTT 31.5 Sodium 135 L Potassium 4.4 Chloride 103 Carbon Dioxide 25 Anion Gap 7 BUN 18 H Creatinine 1.42 H Estim Creat Clear Calc 36 Estimated GFR 36 L Glucose 137 H Calcium 9.8 Total Bilirubin 0.6 AST 36 ALT 22 Alkaline Phosphatase 94 Troponin I 1.150 H* 2.450 H* D Total Protein 6.7 Albumin 4.1 Triglycerides 163 H Cholesterol 179 LDL Cholesterol Direct 95 HDL Direct 54 Lipase 99 Influenza A (RT-PCR) Negative Influenza B (RT-PCR) Negative RSV (RT-PCR) Negative SARS-CoV-2 RNA (RT-PCR) Negative Group A Strep (PCR) Not detected ASA Classification/Sedation ASA Classification/Sedation ASA Class: III Emergent: No Risks: Risks, benefits and alternatives explained and patient/family accepted plan for sedation. Patient re-evaluated immediately prior to sedation.
[2025-06-14 12:46] LABS: Troponin I 4.430 ng/mL (0.000-0.034)
[2025-06-14] MEDS: SODIUM CHLORIDE 0.9% IV 1,000 ML 125 ML IV CONT (13:30)
--- NOTE | 2025-06-14 13:32 | WPDCARDPROC ---
Cardiac Cath Procedure Note Date of procedure:: 06/14/25 Performing physician:: CATHETERIZATION LABORATORY REPORT Procedure Date:06/14/2025 Referring Physician: Dr. Duffy Anesthesia: Versed and Fentanyl were ordered and given in my presence at 1311, procedure ended at 1329. Supervision of nurse, Danya Flaherty monitored moderate sedation with 1mg Versed and 100mcg Fentanyl was provided for 18 minutes. Pre-op Diagnosis: NSTEMI Post-op Diagnosis: NSTEMI Procedure(s): Left heart catheterization with coronary angiography Access Site: Right radial artery Brief History and Clinical Indications: 69-year-old woman with hypertension, hyperlipidemia, and hypothyroidism presents with chest discomfort admitted for NSTEMI for which cardiac catheterization with possible PCI had been recommended. All risks, benefits and alternatives to left heart catheterization with or without percutaneous coronary intervention was discussed at length with the patient. Risk of complications including but not limited to bleeding, infection, arrhythmia, stroke, worsening kidney function, blood loss, groin hematoma, limb loss, emergency coronary artery bypass grafting, and even were discussed with the patient and all questions were answered. The patient understood and wished to proceed. Time out called, patient name, date of , medical record number, allergies, procedure performed, identify Cigar Bander, patient and staff member concurred with accurate data, procedure carried on. Findings: LEFT HEART CATHETERIZATION FINDINGS: 1. Left main: The left main coronary artery is widely patent without any significant obstructive disease. 2. Left anterior descending: The LAD and the diagonal branches have diffuse 10% stenosis. 3. Left circumflex: The left circumflex artery and the main marginal branches have diffuse 10% stenosis. 4. Right coronary artery: The RCA is a large dominant vessel with 10-20% proximal stenosis. The remainder of the vessel has diffuse 10% stenosis. 5. Left ventricle: A. End-diastolic pressure 34 mmHg. B. LV gram showed hyperdynamic systolic function with 3+ MR. C. There was a mild gradient across the aortic valve on pullback. Brockenbrough Braunwald Heaton sign was positive 6. Opening AO pressure 101/66 and closing AO pressure 114/50 Description of Procedure: Informed consent signed and placed in the chart. Patient transferred to electrical laboratory technician room. Prepped and draped in usual sterile fashion. 2% lidocaine injected subcutaneously in right wrist area. 22-gauge venipuncture catheter used to access the right radial artery with the Seldinger technique. 6-FR slender sheath placed in right radial artery. Nitroglycerin 200mcg, Verapamil 2.5mg, and Heparin 5000U was given intraarterial through the sheath. J wire advanced under fluoroscopy. 5F Ultra diagnostic catheter crossed the aortic valve for LVEDP and pullback gradients. During the time, she sustained some ventricular ectopy and it was noted that the Brockenbrough Braunwald Heaton sign was positive. After pull back, the catheter was used to engaged Left Main Coronary Artery and Right Coronary Artery. Multiple orthogonal angiogram obtained and reviewed. 5F Pigtail catheter crossed aortic valve to perform left ventriculogram. Hemostasis was achieved by application of TR band. Assessment: Nonobstructive coronary artery disease 3+ mitral regurgitation Post Operative Condition: Stable No significant blood loss Disposition: Floor Plan: Will need a transthoracic echocardiogram to evaluate for LVOT obstruction and possible etiologies such as HOCM and SABRINA. Continue beta-blockers and nitrates p.r.n. to maintain systolic blood pressure less than 140mmHg. Resume home antihypertensive medications. Atilio Flower Interventional Cardiology
--- NOTE | 2025-06-14 16:59 | PM.IMHP ---
H&P: HPI History of Present Illness Date/Time: 06/14/25 16:59 Chief Complaint: Chest pain Narrative: 69 yo Female with PMH of HTN, HLD, hypothyroidism who presented to the ER on account of Chest pain. Noted chest pain started at about 530pm, left sided, non radiating, associated with SOB and lightheadedness. Denies abd pain, vomiting, diarrhea, focal deficits and no loss of consciousness. ER eval notable for HR 65, RR 18, saturating 98% on room air, BP 138/64 Labs notable for Cr 1.42, Troponin 1.150 increased to 4.43 CXR showed pulm edema cardiology was consulted from the ER Review of Systems Review of Systems: All other systems were reviewed and negative except as noted in the HPI above [facility] Social History Social History Smoking status: Never smoker Second hand tobacco smoke exposure: Yes Alcohol intake: never Substance use: never Substance use type: does not use Lack of Transportation: No Lack of Food: Never True Current Housing: I Have Housing Concerned About Future Housing: No Difficulty Paying Gas/Electric Bills: No Difficulty Paying for Meds: No Currently Unemployed: No Education: High School Diploma/GED Difficulty w/ Childcare or Family Care: No Spiritual care concerns: No Meds Home Medications and Allergies Home Medications ?Medication ?Instructions ?Recorded ?Confirmed ?Type levothyroxine 88 mcg tablet 88 mcg PO DAILY 06/14/25 06/14/25 History ramipril 5 mg capsule 5 mg PO QPM 06/14/25 06/14/25 History rosuvastatin 5 mg tablet 5 mg PO EVERY OTHER DAY 06/14/25 06/14/25 History Allergies Allergy/AdvReac Type Severity Reaction Status Date / Time ciprofloxacin Allergy Unknown Rash Verified 06/14/25 09:26 metronidazole Allergy Unknown Rash Verified 06/14/25 09:26 nitrofurantoin Allergy Unknown Rash Verified 06/14/25 09:26 Vital Signs Vital Signs - 24 hr 06/14/25 06:17 06/14/25 06:18 06/14/25 06:18 Temperature 97.9 F Pulse Rate 94 88 89 Pulse Rate [Right Radial Palpation] Respiratory Rate 18 16 16 Blood Pressure 130/66 130/66 Pulse Oximetry 99 98 100 Oxygen Delivery 06/14/25 06:21 06/14/25 06:30 06/14/25 06:34 Temperature Pulse Rate 90 86 Pulse Rate [Right Radial Palpation] Respiratory Rate 26 H 13 Blood Pressure 109/72 Pulse Oximetry 96 Oxygen Delivery Room Air 06/14/25 06:47 06/14/25 06:53 06/14/25 07:00 Temperature Pulse Rate 92 87 80 Pulse Rate [Right Radial Palpation] Respiratory Rate 12 15 14 Blood Pressure 119/80 Pulse Oximetry 96 96 95 Oxygen Delivery 06/14/25 07:01 06/14/25 07:15 06/14/25 07:16 Temperature Pulse Rate 82 83 81 Pulse Rate [Right Radial Palpation] Respiratory Rate 14 17 13 Blood Pressure 120/68 115/74 Pulse Oximetry 95 96 95 Oxygen Delivery 06/14/25 07:30 06/14/25 07:31 06/14/25 07:45 Temperature Pulse Rate 82 83 80 Pulse Rate [Right Radial Palpation] Respiratory Rate 21 H 21 H 13 Blood Pressure 116/83 Pulse Oximetry 92 95 98 Oxygen Delivery 06/14/25 07:46 06/14/25 07:58 06/14/25 08:00 Temperature Pulse Rate 76 88 82 Pulse Rate [Right Radial Palpation] Respiratory Rate 13 19 17 Blood Pressure 123/85 123/85 Pulse Oximetry 98 97 Oxygen Delivery 06/14/25 08:01 06/14/25 08:15 06/14/25 08:16 Temperature Pulse Rate 93 78 83 Pulse Rate [Right Radial Palpation] Respiratory Rate 25 H 16 13 Blood Pressure 129/81 115/69 Pulse Oximetry 98 94 99 Oxygen Delivery 06/14/25 08:30 06/14/25 08:31 06/14/25 08:45 Temperature Pulse Rate 76 75 79 Pulse Rate [Right Radial Palpation] Respiratory Rate 12 16 19 Blood Pressure 117/82 Pulse Oximetry 98 99 95 Oxygen Delivery 06/14/25 08:46 06/14/25 09:00 06/14/25 09:01 Temperature Pulse Rate 79 77 89 Pulse Rate [Right Radial Palpation] Respiratory Rate 19 17 16 Blood Pressure 131/89 110/75 Pulse Oximetry 94 94 95 Oxygen Delivery 06/14/25 09:13 06/14/25 09:59 06/14/25 10:00 Temperature 98 F Pulse Rate 78 73 77 Pulse Rate [Right Radial Palpation] Respiratory Rate 18 Blood Pressure 132/91 H Pulse Oximetry 98 Oxygen Delivery 06/14/25 11:42 06/14/25 12:00 06/14/25 13:45 Temperature 97.7 F Pulse Rate 65 70 Pulse Rate [Right Radial Palpation] 66 Respiratory Rate 18 Blood Pressure 138/64 Pulse Oximetry 98 Oxygen Delivery 06/14/25 13:45 06/14/25 14:00 06/14/25 14:00 Temperature Pulse Rate 66 63 Pulse Rate [Right Radial Palpation] 63 Respiratory Rate 19 17 Blood Pressure 112/68 114/64 Pulse Oximetry 95 95 Oxygen Delivery Room Air Room Air 06/14/25 14:15 06/14/25 14:15 06/14/25 14:30 Temperature Pulse Rate 65 Pulse Rate [Right Radial Palpation] 65 62 Respiratory Rate 13 Blood Pressure 109/61 Pulse Oximetry 94 Oxygen Delivery Room Air 06/14/25 14:30 06/14/25 14:45 06/14/25 14:45 Temperature Pulse Rate 62 60 Pulse Rate [Right Radial Palpation] 60 Respiratory Rate 18 20 Blood Pressure 112/59 L 103/65 Pulse Oximetry 94 96 Oxygen Delivery Room Air Room Air 06/14/25 15:00 06/14/25 15:00 06/14/25 15:15 Temperature Pulse Rate 63 Pulse Rate [Right Radial Palpation] 63 60 Respiratory Rate 14 Blood Pressure 108/71 Pulse Oximetry 98 Oxygen Delivery Room Air 06/14/25 15:15 06/14/25 15:30 06/14/25 15:30 Temperature Pulse Rate 60 62 Pulse Rate [Right Radial Palpation] 62 Respiratory Rate 19 17 Blood Pressure 123/68 123/68 Pulse Oximetry 97 94 Oxygen Delivery Room Air Room Air 06/14/25 15:45 06/14/25 15:45 06/14/25 16:00 Temperature Pulse Rate 61 Pulse Rate [Right Radial Palpation] 61 60 Respiratory Rate 13 Blood Pressure 132/80 Pulse Oximetry 96 Oxygen Delivery Room Air 06/14/25 16:00 06/14/25 16:15 06/14/25 16:15 Temperature Pulse Rate 60 62 Pulse Rate [Right Radial Palpation] 62 Respiratory Rate 19 19 Blood Pressure 119/67 136/60 Pulse Oximetry 96 98 Oxygen Delivery Room Air Room Air 06/14/25 16:30 06/14/25 16:30 Temperature Pulse Rate 64 Pulse Rate [Right Radial Palpation] 64 Respiratory Rate 20 Blood Pressure 130/70 Pulse Oximetry 95 Oxygen Delivery Room Air Exam Narrative: General: alert and comfortable Eyes: EOMI, PERRLA ENNT External ears normal, Neck is supple, no masses, Respiratory systems: Clear to auscultation Cardiovascular S1, S2, normal rhythm, no murmur, rub, or gallop; no thrill or palpable murmurs on palpation. Gastrointestinal: soft, non-tender, and non-distended abdomen with no masses; BS present Skin: no rash, lesions, ulcerations, subcutaneous nodules or induration Musculoskeletal: no abnormality and no tenderness, normal ROM Neurologic: Alert and oriented x3, non focal Mental Status Exam: normal affect H&P: Results Labs Labs: Short CBC 06/14/25 Range/Units 06:32 WBC 9.0 (4.5-10.0) K/mm3 Hgb 13.1 (12.0-15.0) g/dL Hct 39.6 (37.0-47.0) % Plt Count 210 (150-375) k/mm3 BMP 06/14/25 06:32 Sodium 135 L Potassium 4.4 Chloride 103 Carbon Dioxide 25 BUN 18 H Creatinine 1.42 H Glucose 137 H Calcium 9.8 Cardiac Enzymes 06/14/25 06/14/25 06/14/25 Range/Units 06:32 09:22 12:13 Troponin I 1.150 H* 2.450 H* D 4.430 H* D (0.000-0.034) ng/mL Liver Function 06/14/25 Range/Units 06:32 Total Bilirubin 0.6 (0.2-1.3) mg/dL AST 36 (14-36) U/L ALT 22 (6-35) U/L Alkaline Phosphatase 94 (38-126) U/L Albumin 4.1 (3.5-5.1) g/dL Assessment and Plan Assessment and plan (1) Non-ST elevation ME (NSTEMI): Code(s): I21.4 - Non-ST elevation (NSTEMI) myocardial infarction Status: Acute Plan NSTEMI Presented with Chest pain, Troponin elevated continue aspirin, Lipitor and Metoprolol A1c, Lipid panel, ECHO pending For cardiac cath today cardiology following HTN Titrate home meds with clinical course HLD Continue statin Hypothyroidism Continue home Levothyroxine DVT prophylaxis on Sq Lovenox Full code SDM: Eric Nuñez Hospitalist [facility] Advance Care Plan I have confirmed that the patient's Advanced Care Plan is present, code status is documented, or surrogate decision maker is listed in patient medical record.: Yes Medication Reconciliation I have utilized all available resources to obtain, update and review the patients current medications (includes all prescriptions, OTC, herbals, cannabis, and nutritional supplements).: Yes
[2025-06-14] MEDS: ROSUVASTATIN 20 MG TABLET 40 MG PO (20:19)
[2025-06-15] VITALS (11 sets, daily range): BP systolic 136–162; BP diastolic 63–76; PULSE 59–78; RESP 16–18; TEMP 36.6–36.7; O2SAT 95–96
[2025-06-15 04:37] LABS: Hematocrit 35.9 % (37.0-47.0); Hemoglobin 11.8 g/dL (12.0-15.0); Immature Granulocyte Percent A 0.4 % (0-0.5); Lymphocytes Absolute Auto 1.56 K/mm3 (0.9-3.2); Mean Corpuscular HGB Conc 32.9 g/dl (32-36); Mean Corpuscular Hemoglobin 27.3 pg (26-34); Mean Corpuscular Volume 83.1 fl (80-100); Nucleated Red Blood Cells Absolute Auto 0.000 K/mm3 (0.0-0.012); Nucleated Red Blood Cells Perc 0.0 % (0.0-0.2); Platelet Count Result 161 k/mm3 (150-375); Red Blood Count 4.32 M/mm3 (4.2-5.4); White Blood Count 5.5 K/mm3 (4.5-10.0)
[2025-06-15 04:56] LABS: Alanine Aminotransferase 19 U/L (6-35); Albumin Level 3.7 g/dL (3.5-5.1); Alkaline Phosphatase 93 U/L (38-126); Anion Gap 5 mmol/L (4-12); Aspartate Amino Transferase 67 U/L (14-36); Bilirubin,Total 0.7 mg/dL (0.2-1.3); Blood Urea Nitrogen 14 mg/dL (7-17); Calcium 8.8 mg/dL (8.4-10.2); Carbon Dioxide 26 mmol/L (22-30); Chloride 106 mmol/L (98-107); Cholesterol 150 mg/dL (0-200); Estimated CRCL calculation 47 ml/min; Estimated Glomerular Filt Rate 50; Glucose 100 mg/dL (65-110); HDL Direct 45 mg/dL; Magnesium 2.3 mg/dL (1.6-2.3); Potassium 4.2 mmol/L (3.4-5.0); Sodium 137 mmol/L (137-145); Total Protein 6.1 g/dL (6.3-8.2); Triglycerides 153 mg/dL (<150)
[2025-06-15 04:59] LABS: Hemoglobin A1C 5.3 % (<5.7)
[2025-06-15] MEDS: LEVOTHYROXINE SODIUM 88 MCG TABLET PO (06:13)
[2025-06-15] MEDS: METOPROLOL TARTRATE 25 MG TABLET PO (09:05)
[2025-06-15] MEDS: ASPIRIN 81 MG ENTERIC TABLET PO (09:06)
--- NOTE | 2025-06-15 09:19 | P.PNCA_ITS ---
Progress Note: A&P Assessment and Plan (1) Non-ST elevation ME (NSTEMI): Code(s): I21.4 - Non-ST elevation (NSTEMI) myocardial infarction Status: Acute Assessment and Plan: * patient presented with SOB, chest pain and nausea-has resovled * has had anginal symptoms at home * her troponin peaked at 4.43, will repeat this am for downward trend * her EKG demonstrated ST depressions * she had LHC with only mild non-obstructive CAD * noted to have 3+ MR * echo pending as concern for HOCM/SABRINA * will need to continue BB (Metoprolol) at dc * continue aspirin 81 mg daily and atrorvastatin (2) Hypertension: Code(s): I10 - Essential (primary) hypertension Status: Acute Assessment and Plan: * blood pressure stable, some fluctuations overnight * her ramipril has been resumed * continue with addition of Metoprolol and monitor (3) Hyperlipidemia: Code(s): E78.5 - Hyperlipidemia, unspecified Status: Acute Assessment and Plan: * continue crestor at increased dose of 40 mg daily * her LDL was 75 on labs (4) Renal insufficiency: Code(s): N28.9 - Disorder of kidney and ureter, unspecified Status: Acute Assessment and Plan: * renal function has normalized Plan * await echo to evaluate for HOCM * will need to continue BB at home * will plan for 1 month follow up with Dr. Flower * tn home today after echo reported Subjective Date/time seen: 06/15/25 09:19 Interval history: Date of Service 06/15/25: Patient sitting up in bed. No chest pain or pressure. She is anxious and would like to go home. Denies any shortness of breath, dizziness or palpitations. Review of Systems Review of Systems: All systems reviewed & are unremarkable except as noted in HPI and below Exam Const: General: comfortable and no acute distress Neck: Neck: supple and no JVD Carotids: no bruits Resp: Effort & Inspection: normal respiratory effort Auscultation: clear to auscultation bilaterally Cardio: Rate: regular rate Rhythm: regular rhythm Heart sounds: no g allops, Murmur heart sound present and no rubs Skin: General skin exam: normal color and no erythema Other: rt radial site is soft, dry and intact no hematoma noted. Neuro: General: gait normal Speech: normal speech Extrem: General: no edema Psych: Mental Status: mental status grossly normal Objective Data Vital Signs Vital Signs: Vital Signs - 24 hr 06/14/25 09:59 06/14/25 10:00 06/14/25 11:42 Temperature 36.5 C Pulse Rate 73 77 65 Pulse Rate [Right Radial Palpation] Respiratory Rate 18 Blood Pressure 138/64 Pulse Oximetry 98 Oxygen Delivery 06/14/25 12:00 06/14/25 13:45 06/14/25 13:45 Temperature Pulse Rate 70 66 Pulse Rate [Right Radial Palpation] 66 Respiratory Rate 19 Blood Pressure 112/68 Pulse Oximetry 95 Oxygen Delivery Room Air 06/14/25 14:00 06/14/25 14:00 06/14/25 14:15 Temperature Pulse Rate 63 Pulse Rate [Right Radial Palpation] 63 65 Respiratory Rate 17 Blood Pressure 114/64 Pulse Oximetry 95 Oxygen Delivery Room Air 06/14/25 14:15 06/14/25 14:30 06/14/25 14:30 Temperature Pulse Rate 65 62 Pulse Rate [Right Radial Palpation] 62 Respiratory Rate 13 18 Blood Pressure 109/61 112/59 L Pulse Oximetry 94 94 Oxygen Delivery Room Air Room Air 06/14/25 14:45 06/14/25 14:45 06/14/25 15:00 Temperature Pulse Rate 60 Pulse Rate [Right Radial Palpation] 60 63 Respiratory Rate 20 Blood Pressure 103/65 Pulse Oximetry 96 Oxygen Delivery Room Air 06/14/25 15:00 06/14/25 15:15 06/14/25 15:15 Temperature Pulse Rate 63 60 Pulse Rate [Right Radial Palpation] 60 Respiratory Rate 14 19 Blood Pressure 108/71 123/68 Pulse Oximetry 98 97 Oxygen Delivery Room Air Room Air 06/14/25 15:30 06/14/25 15:30 06/14/25 15:45 Temperature Pulse Rate 62 Pulse Rate [Right Radial Palpation] 62 61 Respiratory Rate 17 Blood Pressure 123/68 Pulse Oximetry 94 Oxygen Delivery Room Air 06/14/25 15:45 06/14/25 16:00 06/14/25 16:00 Temperature Pulse Rate 61 60 Pulse Rate [Right Radial Palpation] 60 Respiratory Rate 13 19 Blood Pressure 132/80 119/67 Pulse Oximetry 96 96 Oxygen Delivery Room Air Room Air 06/14/25 16:15 06/14/25 16:15 06/14/25 16:30 Temperature Pulse Rate 62 Pulse Rate [Right Radial Palpation] 62 64 Respiratory Rate 19 Blood Pressure 136/60 Pulse Oximetry 98 Oxygen Delivery Room Air 06/14/25 16:30 06/14/25 16:45 06/14/25 16:45 Temperature Pulse Rate 64 72 Pulse Rate [Right Radial Palpation] 72 Respiratory Rate 20 12 Blood Pressure 130/70 138/70 Pulse Oximetry 95 99 Oxygen Delivery Room Air Room Air 06/14/25 17:15 06/14/25 17:16 06/14/25 17:25 Temperature 36.6 C Pulse Rate 70 61 Pulse Rate [Right Radial Palpation] 70 Respiratory Rate 16 Blood Pressure 165/66 H Pulse Oximetry 100 Oxygen Delivery 06/14/25 17:45 06/14/25 18:00 06/14/25 18:16 Temperature 36.6 C Pulse Rate 61 66 Pulse Rate [Right Radial Palpation] 67 Respiratory Rate 18 Blood Pressure 142/55 H Pulse Oximetry 98 Oxygen Delivery 06/14/25 18:45 06/14/25 19:16 06/14/25 19:53 Temperature 36.6 C 36.9 C Pulse Rate 71 66 Pulse Rate [Right Radial Palpation] 67 Respiratory Rate 18 18 Blood Pressure 117/84 146/73 H Pulse Oximetry 99 98 Oxygen Delivery 06/14/25 20:00 06/14/25 20:00 06/14/25 20:19 Temperature Pulse Rate 66 66 88 Pulse Rate [Right Radial Palpation] Respiratory Rate 18 Blood Pressure Pulse Oximetry 98 Oxygen Delivery Room Air 06/14/25 20:46 06/14/25 21:54 06/14/25 22:00 Temperature Pulse Rate 72 63 58 L Pulse Rate [Right Radial Palpation] Respiratory Rate Blood Pressure 147/63 H 135/63 Pulse Oximetry Oxygen Delivery 06/14/25 23:52 06/15/25 00:00 06/15/25 00:00 Temperature 36.8 C Pulse Rate 81 62 62 Pulse Rate [Right Radial Palpation] Respiratory Rate 18 18 Blood Pressure 141/64 H Pulse Oximetry 96 96 Oxygen Delivery Room Air 06/15/25 02:00 06/15/25 04:00 06/15/25 04:00 Temperature Pulse Rate 60 69 69 Pulse Rate [Right Radial Palpation] Respiratory Rate 18 Blood Pressure Pulse Oximetry 96 Oxygen Delivery Room Air 06/15/25 04:00 06/15/25 06:00 06/15/25 07:53 Temperature 36.6 C 36.6 C Pulse Rate 63 70 78 Pulse Rate [Right Radial Palpation] Respiratory Rate 18 16 Blood Pressure 162/70 H 136/76 Pulse Oximetry 96 96 Oxygen Delivery 06/15/25 09:05 Temperature Pulse Rate 66 Pulse Rate [Right Radial Palpation] Respiratory Rate Blood Pressure Pulse Oximetry Oxygen Delivery Intake/Output Intake/Output: Intake & Output 06/12/25 06/13/25 06/14/25 06/15/25 23:59 23:59 23:59 23:59 Intake Total 1120 250 Output Total 340 Balance 780 250 Meds/Results Medications: Active Medications Generic Name Dose Route Start Last Admin Trade Name Freq PRN Reason Stop Dose Admin Aspirin 81 mg 06/15/25 09:00 06/15/25 09:06 Aspirin 81 Mg Enteric Tablet PO 81 mg QAM NATALIA Administration Levothyroxine Sodium 88 mcg 06/15/25 06:30 06/15/25 06:13 Levothyroxine Sodium 88 Mcg Tablet PO 88 mcg DAILY@0630 [facility] Administration Metoprolol Tartrate 25 mg 06/14/25 09:10 06/15/25 09:05 Metoprolol Tartrate 25 Mg Tablet PO 25 mg Q12HR NATALIA Administration Morphine Sulfate 2 mg 06/14/25 07:51 Morphine Sulfate (*Crx) 4 Mg/Ml Inj IV PUSH Q2H PRN Pain Rated 7-10 Ondansetron HCl 4 mg 06/14/25 07:51 Ondansetron Inj 4 Mg/2 Ml Vial IV PUSH Q4H PRN Nausea Perflutren Lipid Microsphere 0 ml 06/14/25 08:28 Perflutren Lipid Microspheres 1.5 Ml Vial Diluted To 10 Ml Total Volume IV PUSH 06/17/25 08:29 ONCE PRN adequate visualization Protocol Ramipril 5 mg 06/14/25 18:00 06/14/25 18:07 Ramipril 5 Mg Capsule PO 5 mg QPM NATALIA Administration Rosuvastatin Calcium 40 mg 06/14/25 21:00 06/14/25 20:19 Rosuvastatin 20 Mg Tablet PO 40 mg QHS NATALIA Administration Radiology Results: ITS Impressions Chest X-Ray 06/14/25 06:58 IMPRESSION: 1. Interstitial pulmonary edema and/or pneumonitis. Renal Ultrasound 06/14/25 21:23 IMPRESSION: No hydronephrosis is evident. Normal appearing bladder. Labs Labs: Laboratory Results - last 24 hr 06/14/25 06/14/25 06/14/25 06:32 09:22 12:13 WBC RBC Hgb Hct MCV MCH MCHC RDW Plt Count MPV Immature Gran % (Auto) Neut % (Auto) Lymph % (Auto) [place] % (Auto) Eos % (Auto) Baso % (Auto) Lymph # (Auto) [place] # (Auto) Eos # (Auto) Baso # (Auto) Abs Immat Gran (auto) Absolute Neuts (auto) Absolute Nucleated RBC Nucleated RBC % Sodium Potassium Chloride Carbon Dioxide Anion Gap BUN Creatinine Estim Creat Clear Calc Estimated GFR Glucose Hemoglobin A1c Calcium Magnesium Total Bilirubin AST ALT Alkaline Phosphatase Troponin I 2.450 H* D 4.430 H* D Total Protein Albumin Triglycerides Cholesterol LDL Cholesterol Direct 95 HDL Direct 06/15/25 04:13 WBC 5.5 RBC 4.32 Hgb 11.8 L Hct 35.9 L MCV 83.1 MCH 27.3 MCHC 32.9 RDW 14.0 Plt Count 161 MPV 10.2 Immature Gran % (Auto) 0.4 Neut % (Auto) 60.0 Lymph % (Auto) 28.5 [place] % (Auto) 7.1 Eos % (Auto) 3.5 Baso % (Auto) 0.5 Lymph # (Auto) 1.56 [place] # (Auto) 0.4 Eos # (Auto) 0.2 Baso # (Auto) 0.0 Abs Immat Gran (auto) 0.02 Absolute Neuts (auto) 3.3 Absolute Nucleated RBC 0.000 Nucleated RBC % 0.0 Sodium 137 Potassium 4.2 Chloride 106 Carbon Dioxide 26 Anion Gap 5 BUN 14 Creatinine 1.08 H Estim Creat Clear Calc 47 Estimated GFR 50 L Glucose 100 Hemoglobin A1c 5.3 Calcium 8.8 Magnesium 2.3 Total Bilirubin 0.7 AST 67 H ALT 19 Alkaline Phosphatase 93 Troponin I Total Protein 6.1 L Albumin 3.7 Triglycerides 153 H Cholesterol 150 LDL Cholesterol Direct 75 HDL Direct 45
[2025-06-15 11:35] LABS: Troponin I 4.030 ng/mL (0.000-0.034)
--- NOTE | 2025-06-15 12:55 | P.DS_ITS ---
DS: Admitting Diagnosis Discharge Date 06/15/2025 Admitting Diagnosis Chest pain DS: Discharge Diagnosis Discharge Diagnosis (1) Non-ST elevation [place] (NSTEMI): Code(s): I21.4 - Non-ST elevation (NSTEMI) myocardial infarction Status: Acute DS: Summary Hospital Course Hospital Course: NSTEMI Presented with Chest pain, Troponin elevated with peak to 4.4 continue aspirin, Lipitor and Metoprolol A1c, Lipid panel, ECHO pending cardiology consulted Underwent cardiac catheterization: Mild nonobstructive coronary artery disease. 3+ mitral regurgitation TTE performed which showed left ventricular hypertrophy with EF 75% grade 1 diastolic noncompliance. Mild mitral regurgitation HTN Titrate home meds with clinical course HLD Continue statin Hypothyroidism Continue home Levothyroxine DVT prophylaxis on Sq Lovenox Full code SDM: Eric Crockett Joaquin Time Spent with Patient Time attestation: Total time spent providing and/or coordinating discharge services: 35 minute Exam Narrative: General: alert and comfortable Eyes: EOMI, PERRLA External ears normal, Neck is supple, no masses, Respiratory systems: Clear to auscultation no respiratory distress Cardiovascular S1, S2, normal rhythm, no murmur, rub, or gallop; no thrill or palpable murmurs on palpation. Gastrointestinal: soft, non-tender, and non-distended abdomen with no masses; BS present Skin: no rash, lesions, ulcerations, subcutaneous nodules or induration Musculoskeletal: no abnormality and no tenderness, normal ROM Neurologic: Alert and oriented x3, non focal Mental Status Exam: normal affect DS: Data Data Completed and Pending Completed studies during hospitalization: Exam Type: CA echo doppler color flow Complete two-dimensional, color flow and Doppler transthoracic echocardiogram is performed. Staff Referring Physician: Khloe Cheatham Court Stenographer: Willie Pisano III Attending Provider: Carol Duffy MD Summary 1. Complete two-dimensional, color flow and Doppler transthoracic echocardiogram is performed. 2. Concentric left ventricular hypertrophy with vigorous systolic function visually estimated ejection fraction 75%. 3. Is 1 diastolic noncompliance. 4. Aortic valve sclerosis with good leaflet separation valve was not stenotic. 5. Mild mitral regurgitation. Left Ventricle Left ventricular chamber dimension is normal. Left ventricular systolic function is hyperdynamic, estimated at >70. There is moderate concentric increased left ventricular wall thickness. The left ventricular diastolic function is grade I diastolic dysfunction. Right Ventricle Right ventricular chamber dimension is normal. Left Atria Left atrial chamber dimension is normal. Right Atria Right atrial chamber dimension is normal. Aortic Valve The aortic valve is trileaflet. There is mild aortic valve sclerosis. Pulmonic Valve The pulmonic valve is normal. Mitral Valve The mitral valve has normal leaflets. There is mild mitral valve regurgitation. Tricuspid Valve The tricuspid valve leaflets are normal. Pericardium/Pleural The pericardium appears normal. Aorta The aortic root size at the sinus of Valsalva is normal. Labs on day of discharge: Labs from last 24 hours 06/15/25 06/15/25 10:51 04:13 WBC 5.5 RBC 4.32 Hgb 11.8 L Hct 35.9 L MCV 83.1 MCH 27.3 MCHC 32.9 RDW 14.0 Plt Count 161 MPV 10.2 Immature Gran % (Auto) 0.4 Neut % (Auto) 60.0 Lymph % (Auto) 28.5 [place] % (Auto) 7.1 Eos % (Auto) 3.5 Baso % (Auto) 0.5 Lymph # (Auto) 1.56 [place] # (Auto) 0.4 Eos # (Auto) 0.2 Baso # (Auto) 0.0 Abs Immat Gran (auto) 0.02 Absolute Neuts (auto) 3.3 Absolute Nucleated RBC 0.000 Nucleated RBC % 0.0 Sodium 137 Potassium 4.2 Chloride 106 Carbon Dioxide 26 Anion Gap 5 BUN 14 Creatinine 1.08 H Estim Creat Clear Calc 47 Estimated GFR 50 L Glucose 100 Hemoglobin A1c 5.3 Calcium 8.8 Magnesium 2.3 Total Bilirubin 0.7 AST 67 H ALT 19 Alkaline Phosphatase 93 Troponin I 4.030 H* Total Protein 6.1 L Albumin 3.7 Triglycerides 153 H Cholesterol 150 LDL Cholesterol Direct 75 HDL Direct 45 Procedures/Treatments: Cardiac Cath Procedure Note Date of procedure:: 06/14/25 Performing physician:: CATHETERIZATION LABORATORY REPORT Procedure Date:06/14/2025 Referring Physician: Dr. Duffy Anesthesia: Versed and Fentanyl were ordered and given in my presence at 1311, procedure ended at 1329. Supervision of nurse, Danya Flaherty monitored moderate sedation with 1mg Versed and 100mcg Fentanyl was provided for 18 minutes. Pre-op Diagnosis: NSTEMI Post-op Diagnosis: NSTEMI Procedure(s): Left heart catheterization with coronary angiography Access Site: Right radial artery Brief History and Clinical Indications: 69-year-old woman with hypertension, hyperlipidemia, and hypothyroidism presents with chest discomfort admitted for NSTEMI for which cardiac catheterization with possible PCI had been recommended. All risks, benefits and alternatives to left heart catheterization with or without percutaneous coronary intervention was discussed at length with the patient. Risk of complications including but not limited to bleeding, infection, arrhythmia, stroke, worsening kidney function, blood loss, groin hematoma, limb loss, emergency coronary artery bypass grafting, and even were discussed with the patient and all questions were answered. The patient understood and wished to proceed. Time out called, patient name, date of , medical record number, allergies, procedure performed, identify Rig Builder, patient and staff member concurred with accurate data, procedure carried on. Findings: LEFT HEART CATHETERIZATION FINDINGS: 1. Left main: The left main coronary artery is widely patent without any significant obstructive disease. 2. Left anterior descending: The LAD and the diagonal branches have diffuse 10% stenosis. 3. Left circumflex: The left circumflex artery and the main marginal branches have diffuse 10% stenosis. 4. Right coronary artery: The RCA is a large dominant vessel with 10-20% proximal stenosis. The remainder of the vessel has diffuse 10% stenosis. 5. Left ventricle: A. End-diastolic pressure 34 mmHg. B. LV gram showed hyperdynamic systolic function with 3+ MR. C. There was a mild gradient across the aortic valve on pullback. Brockenbrough Braunwald Heaton sign was positive 6. Opening AO pressure 101/66 and closing AO pressure 114/50 Description of Procedure: Informed consent signed and placed in the chart. Patient transferred to labor economics teacher room. Prepped and draped in usual sterile fashion. 2% lidocaine injected subcutaneously in right wrist area. 22-gauge venipuncture catheter used to access the right radial artery with the Seldinger technique. 6-FR slender sheath placed in right radial artery. Nitroglycerin 200mcg, Verapamil 2.5mg, and Heparin 5000U was given intraarterial through the sheath. J wire advanced under fluoroscopy. 5F Ultra diagnostic catheter crossed the aortic valve for LVEDP and pullback gradients. During the time, she sustained some ventricular ectopy and it was noted that the Brockenbrough Braunwald Heaton sign was positive. After pull back, the catheter was used to engaged Left Main Coronary Artery and Right Coronary Artery. Multiple orthogonal angiogram obtained and reviewed. 5F Pigtail catheter crossed aortic valve to perform left ventriculogram. Hemostasis was achieved by application of TR band. Assessment: Nonobstructive coronary artery disease 3+ mitral regurgitation Post Operative Condition: Stable No significant blood loss Disposition: Floor Plan: Will need a transthoracic echocardiogram to evaluate for LVOT obstruction and possible etiologies such as HOCM and SABRINA. Continue beta-blockers and nitrates p.r.n. to maintain systolic blood pressure less than 140mmHg. Resume home antihypertensive medications. Atilio Flower Interventional Cardiology Imaging Radiologist's impression: ITS Impressions Chest X-Ray 06/14/25 06:58 IMPRESSION: 1. Interstitial pulmonary edema and/or pneumonitis. Renal Ultrasound 06/14/25 21:23 IMPRESSION: No hydronephrosis is evident. Normal appearing bladder. Discharge Plan Discharge Attending physician on discharge: Rajinder Jerome Consulting providers: Atilio Flwoer Discharging Clinician: Rajinder Jerome Anticipated Discharge Date/Time: 06/15/25 13:00 Patient Disposition: Home Activity: as tolerated Diet: heart healthy Discharge Instructions: [facility] [address] [place], [place] [id number] DISCHARGE INSTRUCTIONS - POST RADIAL CATH Activity 1. No driving for 24 hours. 2. No lifting more than 5 lb with affected arm for 1 week. 3. May shower ( tomorrow) but no excessive soaking of affected hand/wrist (such as washing dishes), swimming pool or hot tub for 5 days. Wound Care 1. May remove arm board in the morning. 2. May remove gauze dressing in the morning and put Band-Aid over affected radial site. Keep site covered for 3 days. 3. Observe for redness, drainage, swelling or bleeding. Medications DO NOT STOP YOUR MEDICATIONS ONLY YOUR WRITER EDITOR CAN STOP THE FOLLOWING MEDICATIONS - PLEASE CALL THE OFFICE WITH QUESTIONS. *Aspirin *Ticagrelor (Brilinta) *Atorvastatin *Lisinopril or ARB *Metoprolol tartrate or succinate *Clopidogrel (Plavix) *Prasugrel (Effient) Important Reminders 1. Keep your stent card in your wallet at all times 2. Follow a heart healthy diet paying extra attention to cholesterol and fats. 3. Stay hydrated. 4. If you have chest pain unrelieved by rest or nitroglycerin (if prescribed) call 911 immediately. 5. If you miss one dose of Brilinta (if prescribed) take a tablet at the next time due. If you miss 2 doses take a tablet when you remember and resume at the next time due. *For any other questions please call the office at [phone]. Office hours are 8AM 4:30PM Wednesday through Wednesday. Patient Instructions: Antibiotic Form Patient Language: Hungarian Stand Alone Forms: General Discharge Information Follow-up/Referrals: Atilio Flower MD [Physician, Interventional Cardiology] - 2 Weeks Tatyana,Walter Castro MD [Primary Care Provider, Unknown] - 1 Week Discharge Medications: New aspirin 81 mg Tablet,Delayed Release (Dr/Ec) 81 mg PO QAM Qty: 30 0RF metoprolol tartrate 25 mg Tablet 25 mg PO Q12HR Qty: 60 0RF rosuvastatin 20 mg Tablet 40 mg PO QHS Qty: 60 0RF Continued ramipril 5 mg capsule 5 mg PO QPM levothyroxine 88 mcg tablet 88 mcg PO DAILY Discontinued rosuvastatin 5 mg tablet 5 mg PO EVERY OTHER DAY Rx Instructions: 5 mg orally; takes on Wednesday , Wednesday and Wednesday Date of admission: 06/14/25 07:52 Primary Care Provider: TatyanaWalter Admitting Provider: Carol Duffy Attending physician on admission: Carol Duffy Condition: Stable
== END 2025-06-15 14:55 | disposition home or self-care (01) | DRG 282 ==
LOC: ANHED 08:22 → ANHIMU 08:37
PROVIDERS: Internal Medicine; Nurse Practitioner Family; Student in an Organized Health Care Education/Training Program; Admitting Provider Family Medicine; Emergency Provider Family Medicine; PCP Family Medicine; Visit Provider Internal Medicine
PROC: 4A023N7 Measurement of Cardiac Sampling and Pressure, Left Heart, Percutaneous Approach (ICD-10-PCS; CPT 93452; principal; 2025-06-14 14:30)
DX: I21.4 Non-ST elevation (NSTEMI) myocardial infarction (principal); I25.10 Atherosclerotic heart disease of native coronary artery without angina pectoris; I34.0 Nonrheumatic mitral (valve) insufficiency; I10 Essential (primary) hypertension; E78.5 Hyperlipidemia, unspecified; E03.9 Hypothyroidism, unspecified; N28.9 Disorder of kidney and ureter, unspecified
CPT/HCPCS: 36415; 71046; 76770; 80053; 80061; 83036; 83690; 83735; 84484; 85025; 85610; 85730; 87637; 87651; 93005; 93306; 93458; 96374; 99285; A9270; C1769; C1887; C1894; J1644; J2003; J2250; J2305; J3010; J7030; J7040